=== PATIENT | female | born 1970 | race African-American/Black ===

== ENCOUNTER 2016-10-30 06:44 | Emergency (ER) | payer MEDICAID, OTHER ==
[~2016-10-30] VITALS: Ht 182.9 cm; Wt 109.1 kg
[2016-10-30 09:17] LABS: INFLUENZA TYPE B NEGATIVE FOR TYPE B (NEGATIVE)
[2016-10-30 09:18] LABS: APPEARANCE,URINE CLEAR (CLEAR); GLUCOSE, URINE (UA) NEGATIVE (NEGATIVE); KETONES,URINE NEGATIVE (NEGATIVE); LEUKOCYTE ESTERASE ,URINE NEGATIVE (NEGATIVE); OCCULT BLOOD,URINE NEGATIVE (NEGATIVE); PH,URINE 5.5 (5.0-8.0); PROTEIN,URINE NEGATIVE (NEGATIVE)
[2016-10-30 09:20] LABS: ADD UA MICROSCOPIC NO
[2016-10-30 11:44] VITALS: BP 123/77
== END 2016-10-30 11:50 | disposition home or self-care (01) ==
LOC: EMS 06:45
DX: J06.9 Acute upper respiratory infection, unspecified (principal)
CPT/HCPCS: 71020; 87804; 99285